=== PATIENT | male | born 1980 | race Caucasian/White ===

== ENCOUNTER 2017-02-16 21:40 | Emergency (ER) | payer BC ==
--- NOTE | 2017-02-17 01:40 | ER Document Report ---
ED General - General Chief Complaint: Fall Injury Stated Complaint: RIGHT HAND NUMBNESS Time Seen by Provider: 02/17/17 00:13 Notes: Patient is a 36-year-old male chronic alcoholic, no other medical problems who presents with 3 weeks of intermittent paresthesias. States he an episode today in which his right hand became numb and his right face became numb. States that the remainder of his arm felt normal. Denies any actual loss of sensation stating only thought these areas were asleep. States he has had migratory paresthesias involving both sides more, to the right side. These episodes lasted no more than 30 minutes and the do spontaneously resolved. Nothing seems to trigger the episodes and they do go away on their own. No history of CVA, malignancy, or any other medical problems. He has not seen a primary care doctor regarding today's concerns. He denies any symptoms at the time of my assessment. TRAVEL OUTSIDE OF THE [place] IN LAST 30 DAYS: No - Related Data Allergies/Adverse Reactions: No Known Allergies Allergy (Unverified 12/28/10 09:37) Past Medical History - General Information source: Patient - Social History Smoking Status: Current Every Day Smoker Frequency of alcohol use: Heavy Drug Abuse: None Lives with: Spouse/Significant other Family History: Reviewed & Not Pertinent Renal/ Medical History: Denies: Hx Peritoneal Dialysis Review of Systems - Review of Systems Notes: Constitutional: Negative for fever. HENT: Negative for sore throat. Eyes: Negative for visual changes. Cardiovascular: Negative for chest pain. Respiratory: Negative for shortness of breath. Gastrointestinal: Negative for abdominal pain, vomiting or diarrhea. Genitourinary: Negative for dysuria. Musculoskeletal: Negative for back pain. Skin: Negative for rash. Neurological: Negative for headaches, positive for intermittent paresthesias 10 point ROS negative except as marked above and in HPI. Physical Exam - Vital signs Vitals: Temp Pulse Resp BP Pulse Ox 98.6 F 59 L 16 161/93 H 99 02/16/17 22:16 02/16/17 22:16 02/16/17 22:16 02/16/17 22:16 02/16/17 22:16 Interpretation: Hypertensive Notes: PHYSICAL EXAMINATION: GENERAL: Well-appearing, well-nourished and in no acute distress. HEAD: Atraumatic, normocephalic. EYES: Pupils equal round and reactive to light, extraocular movements intact, sclera anicteric, conjunctiva are normal. ENT: nares patent, oropharynx clear without exudates. Moist mucous membranes. NECK: Normal range of motion, supple without lymphadenopathy LUNGS: Breath sounds clear to auscultation bilaterally and equal. No wheezes rales or rhonchi. HEART: Regular rate and rhythm without murmurs ABDOMEN: Soft, nontender, normoactive bowel sounds. No guarding, no rebound. No masses appreciated. EXTREMITIES: Normal range of motion, no pitting or edema. No cyanosis. NEUROLOGICAL: Face symmetric. Tongue protrudes midline. Extraocular motions intact. Pupils are 2 mm and equally reactive. Normal speech, normal gait. 5 out of 5 strength in both the distal and proximal upper and lower extremities bilaterally. Sensation is grossly intact throughout. Finger to nose testing normal. Pronator drift normal. PSYCH: Normal mood, normal affect. SKIN: Warm, Dry, normal turgor, no rashes or lesions noted. Course - Re-evaluation Re-evalutation: 02/17/17 01:38 Patient presents with intermittent paresthesias diffusely although today states evidence of right hand and right face. He has no neurologic deficits whatsoever on examination. NIH stroke scale is 0. I do not believe any neurologic ridging is indicated given the absence of any neurologic deficits on exam and his clinical history of intermittent, migratory paresthesias. Patient is a very heavy alcohol user drinking anywhere between 12 and 20 alcoholic beverages daily and has very poor nutrition. His presentation would be more consistent with a vitamin B12 or folate deficiency which I discussed with the patient at length. I have asked him to gradually cut down his alcohol use and begin supplementing vitamins and follow with primary care doctor. At this time will discharge with return precautions and follow-up recommendations. Verbal discharge instructions given a the bedside and opportunity for questions given. Medication warnings reviewed. Patient is in agreement with this plan and has verbalized understanding of return precautions and the need for primary care follow-up in the next 24-72 hours. - Vital Signs Vital signs: Temp Pulse Resp BP Pulse Ox 97.9 F 62 16 150/85 H 99 02/17/17 01:57 02/17/17 01:57 02/17/17 01:57 02/17/17 01:57 02/17/17 01:57 Discharge - Discharge Clinical Impression: Paresthesias Condition: Good Disposition: HOME, SELF-CARE Additional Instructions: Please gradually cut down on how much you drink. Begin taking a daily multivitamin follow-up with your primary care doctor for formal vitamin levels. Return if you develop persistent weakness, numbness, confusion, difficulty speaking, difficulty walking or any other symptoms that are worrisome to you.
[2017-02-17 02:01] VITALS: BP 150/85
== END 2017-02-17 02:02 | disposition home or self-care (01) ==
LOC: ER 21:40
DX: R20.2 Paresthesia of skin (principal); R20.0 Anesthesia of skin; F10.20 Alcohol dependence, uncomplicated; F17.200 Nicotine dependence, unspecified, uncomplicated
CPT/HCPCS: 99283

== ENCOUNTER 2017-11-29 15:21 | Emergency (ER) | payer MEDICAID ==
[2017-11-29] MEDS ORDERED: LIDOCAINE 1% INJ-PF (10 MG/ML) 30 ML SDV INJ ONE (16:26)
[2017-11-29] MEDS ORDERED: DIPH/PERTUSS(ACELL)/TETANUS VAC/PF 0.5 ML SYR (>=10YO) IM ONE (16:26)
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
[2017-11-29 18:20] VITALS: BP 103/62
== END 2017-11-29 18:10 | disposition home or self-care (01) ==
LOC: ER 15:21
DX: S41.112A Laceration without foreign body of left upper arm, initial encounter (principal); S80.211A Abrasion, right knee, initial encounter; S60.511A Abrasion of right hand, initial encounter; S40.212A Abrasion of left shoulder, initial encounter; V86.99XA Unspecified occupant of other special all-terrain or other off-road motor vehicle injured in nontraffic accident, initial encounter; F17.200 Nicotine dependence, unspecified, uncomplicated; I10 Essential (primary) hypertension; Z79.899 Other long term (current) drug therapy
CPT/HCPCS: 99283; 90471; 73562; 73030; 90715; 12031; J3490

== ENCOUNTER → 2019-10-23 | Outpatient (CLI) | payer BC ==
--- NOTE | 2019-10-24 10:51 | XCELERA REPORT ---
[address] [address] Lower Extremity Arterial Evaluation Name: TAI LOWRY Age: 39 yrs Gender: Male : 1980 Patient Status: Outpatient Patient Location: Study Date: 10/23/2019 02:21 PM Procedure: A color flow and duplex scan of the lower extremity arteries was performed bilaterally with velocity and waveform anaylsis. Reason For Study: PVD Ordering Physician: CARLEE DE LA FUENTE Performed By: Caden Moncada Measurements and Calculations Right Left LIVESTOCK TRADER PSV 113.8 62.9 cm/sec Prox PFA PSV -75.0 -58.3 cm/sec Prox SFA PSV 86.9 75.1 cm/sec Mid SFA PSV -86.4 -73.5 cm/sec Dist SFA PSV -64.0 -45.5 cm/sec Prox Pop A PSV 54.4 41.8 cm/sec Dist NATALYA PSV 43.7 48.0 cm/sec Dist FIRE CONTROL TECHNICIAN B PSV 25.7 38.7 cm/sec Zuhair Pedis PSV 41.5 41.2 cm/sec Right Side Arterial Evaluation Vessel morales smooth on harrington scale imaging. , Normal velocity and triphasic waveforms noted from the Common Femoral artery to the infrageniculate vessels . Ankle Brachial index not done. Left Side Arterial Evaluation Vessel morales smooth on harrington scale imaging. , Normal velocity and triphasic waveforms noted from the Common Femoral artery to the infrageniculate vessels . Ankle Brachial index not done. Interpretation Summary No hemodynamically significant lesions in the bilateral lower extremities, on duplex imaging, at rest. : CARLEE DE LA FUENTE [place]
== END ==
LOC: SP 13:21
PROVIDERS: ATTEND Nurse Practitioner Primary Care
DX: I73.9 Peripheral vascular disease, unspecified (principal)
CPT/HCPCS: 93925

== ENCOUNTER 2020-05-23 09:00 | Emergency (ER) | payer OTHER, MEDICARE ==
[2020-05-23] MEDS ORDERED: HYDROCODONE/ACETAMINOPHEN 5-325 MG TABLET PO ONE (09:39)
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
[2020-05-23 11:40] VITALS: BP 124/92
== END 2020-05-23 11:38 | disposition home or self-care (01) ==
LOC: ER 09:00
DX: S20.211A Contusion of right front wall of thorax, initial encounter (principal); R07.81 Pleurodynia; V89.2XXA Person injured in unspecified motor-vehicle accident, traffic, initial encounter; F17.200 Nicotine dependence, unspecified, uncomplicated; I10 Essential (primary) hypertension
CPT/HCPCS: 99284